=== PATIENT | female | born 1955 | race Caucasian/White ===

== ENCOUNTER → 2021-04-28 11:02 | Outpatient (BNVA) | payer OTHER, SELFPAY | PROVIDERS: Visit Provider Nurse Practitioner Family | DX: Z11.52 Encounter for screening for COVID-19 (principal) | CPT/HCPCS: 87635 ==

== ENCOUNTER → 2022-03-18 09:17 | Outpatient (BNVA) | payer MEDICARE, OTHER, SELFPAY | PROVIDERS: PCP Nurse Practitioner Family; Visit Provider Nurse Practitioner Family | DX: J40 Bronchitis, not specified as acute or chronic (principal) | CPT/HCPCS: 71046; 80053; 80061; 82306; 83036; 84443 ==

== ENCOUNTER 2022-05-04 13:28 | Outpatient (CLI) | payer MEDICARE, OTHER, SELFPAY ==
--- NOTE | 2022-05-04 13:44 | XR_ITS ---
WS: [id number] DEXA (DUAL ENERGY X-RAY ABSORPTIOMETRY) Bone mineral density was performed using a [employer] machine. HISTORY: ASYMPTOMATIC MENOPAUSAL STATE COMPARISON: None available. Lumbar spine BMD (L1-L4): 0.990 g/cm2 T score: -1.6 Z score: -1.1 Total hip BMD: Left: 1.071 g/cm2. T score: 0.5 Z score: 0.9 Right: 1.070 g/cm2. T score: 0.5 Z score: 0.9 10 year probability of a major osteoporotic fracture is 7.7%. XR/XR DEXA axial skeleton* [id number] IMPRESSION: OSTEOPENIA based upon the WHO classification for females.
--- NOTE | 2022-05-04 13:47 | MM_ITS ---
WS: [email or web address] BILATERAL 3D TOMOSYNTHESIS DIGITAL SCREENING MAMMOGRAPHY WITH CAD CLINICAL INFORMATION: SCREENING HISTORY: Screening mammogram. No current complaints. COMPARISON: 2018 TECHNIQUE: Bilateral CC and MLO views. FINDINGS: Scattered fibroglandular densities bilaterally. No suspicious focal mass, asymmetry, calcifications, or architectural distortion. No evidence of malignancy. Punctate and lucent centered calcifications. MM/[place] [id number] IMPRESSION: BI-RADS: 2-Benign FOLLOW UP: 1 Year Follow-up Recommend return to annual screening mammography.
== END 2022-05-04 13:29 | disposition home or self-care (01) ==
LOC: RAD 13:29
PROVIDERS: PCP Nurse Practitioner Family; Visit Provider Nurse Practitioner Family
DX: Z12.31 Encounter for screening mammogram for malignant neoplasm of breast (principal); Z78.0 Asymptomatic menopausal state; M85.80 Other specified disorders of bone density and structure, unspecified site
CPT/HCPCS: 77063; 77067; 77080

== ENCOUNTER 2024-04-17 10:56 | Emergency (ER) | payer MEDICARE, OTHER, SELFPAY ==
[2024-04-17 10:58] VITALS: BP 203/85; PULSE 80; RESP 16; TEMP 36.4; O2SAT 96; BMI 39.1
--- NOTE | 2024-04-17 11:16 | CT_ITS ---
WS: [id number] CT HEAD NONCONTRAST HISTORY: Symptoms of acute stroke TECHNIQUE: Contiguous axial imaging performed through the brain. Bone and soft tissue windows. Sagitt al and coronal reformats reviewed. All CT scans at [facility] use at least one of these dose optimization techniques: automated exposure control; mA and/or kV adjustment per patient size (includ es targeted exams where dose is matched to clinical indication); or iterative reconstruction. DLP: 1153.88 mGy COMPARISON: None available. No acute intracranial hemorrhage, midline shift or mass effect. Moderate atrophy. Prior lacunar infarct LEFT thalamus. Ventricles: Normal size with no hydrocephalus. No inferior displacement of the cerebellar tonsils. Paranasal sinuses: As visualized are clear. Mastoid air cells: Well pneumatized. Calvarium and scalp: Skull is intact with no soft tissue edema or swelling. CT/CT head thrombolytic [id number] IMPRESSION: 1. No acute intracranial hemorrhage or edema. 2. Mild atrophy and small vessel disease. 3. Remote LEFT thalamic lacunar infarct.
--- NOTE | 2024-04-17 11:28 | ECG_ITS ---
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 Measurements Intervals [place] Rate: 72 P: -6 TN: 158 QRS: 15 QRSD: 103 T: 35 QT: 375 QTc: 413 Interpretive Statements SINUS RHYTHM LOW QRS VOLTAGE IN PRECORDIAL LEADS [QRS DEFLECTION < 1.0 mV IN CHEST LEADS] POSSIBLE INFERIOR MYOCARDIAL INFARCTION , PROBABLY OLD [30 ms Q WAVE IN II/aVF] No previous ECG available for comparison Electronically Signed On 04-20-2024 21:46:32 [employer] by Wale Romano M.D. [email or web address]
[2024-04-17 11:44] LABS: Basophils # 0.1 10^3/uL (0.0-0.1); Basophils % 1.4 %; Eosinophils # 0.2 10^3/uL (0.0-0.8); Eosinophils % 3.3 %; Hematocrit 45.9 % (36-47); Lymphocytes # 2.4 10^3/uL (0.8-4.8); Lymphocytes % 37.5 %; Mean Corpuscular HGB Conc 31.6 g/dL (30-55); Mean Corpuscular Volume 88.8 fl (85-98); Mean Platelet Volume 11.1 fL (7.4-10.4); Monocytes # 0.5 10^3/uL (0.2-0.9); Monocytes % 7.3 %; Neutrophils # 3.23 10^3/uL (1.8-7.7); Neutrophils % 50.2 %; Nucleated Red Blood Cells % 0 %; Platelet Count 262 10^3/cmm (157-399); Red Blood Count 5.17 10^6/uL (3.85-5.65); Red Cell Distribution Width 12.7 % (12.1-15.1); White Blood Count 6.43 10^3/uL (3.29-11.43)
[2024-04-17 12:00] LABS: Partial Thromboplastin Time 31.6 SECONDS (23.9-36.7)
[2024-04-17 12:05] LABS: Alanine Aminotransferase 23 U/L (0-33); Alkaline Phosphatase 87 U/L (35-105); Anion Gap 16.2 (5-19); Aspartate Amino Transferase 23 U/L (0-32); Blood Urea Nitrogen 15 mg/dL (8-23); Calcium 8.7 mg/dL (8.5-10.5); Carbon Dioxide 23 mmol/L (22-29); Chloride 103 mmol/L (98-107); Creatinine Clr Calc Pharmacy 78.8243; Globulin 3.6 g/dL (1.3-4.6); Glomerular Filtration Rate 83.2 mL/min (90-130); Glucose 209 mg/dL (65-115); Osmolality Calculated 293 mOsm/kg (285-295); Potassium 4.2 mmol/L (3.5-5.1); Sodium 138 mmol/L (136-145); Total Bilirubin 0.4 mg/dL (0.15-1.2); Total Protein 7.6 g/dL (6.6-8.7)
--- NOTE | 2024-04-17 12:15 | ED_ITS ---
HPI - Neuro Symptoms/Deficit 2 General: Chief Complaint: Neuro Symptoms/Deficit Stated Complaint: stroke symptoms sent from clinic Time Seen by Provider: 04/17/24 11:15 History of Present Illness: 68-year-old female who presents emergenc y room with complaint of strokelike symptoms. Her last known well was at least 48 hours ago. She reports of numbness in her right hand and the right side of her face difficulty ambulating and stumbling at times. She is reporting difficulty with restless legs and significantly problems some at night. Associated symptoms: Deny chest pain Related Data Previous Rx's Medication Instructions Recorded aspirin 81 mg tablet,delayed 81 mg PO DAILY #30 tabs 04/17/24 release atorvastatin 40 mg tablet 40 mg PO DAILY #30 tabs 04/17/24 clopidogrel 75 mg tablet (Plavix) 75 mg PO DAILY #30 tabs 04/17/24 Allergies Allergy/AdvReac Type Severity Reaction Status Date / Time No Known Allergies Allergy Verified 04/28/21 10:58 Review of Systems 2 Const: Denies: fever(s) or chills Card: Denies: chest pain Resp: Denies: dyspnea GI: Denies: abdominal pain : Denies: dysuria, urinary frequency or urinary urgency Musc: Denies: neck pain or back pain Skin/Breast: Denies: rash Neuro: Reports: weakness in extremities and difficulty walking PFSH ED 2 PFSH: Medical History (Updated 04/17/24 @ 16:10 by Bhanu Santamaria DO) Osteopenia Elevated BP without diagnosis of hypertension Social History Smoking and tobacco/nicotine status: former use of tobacco/nicotine NIH stroke score 2 NIHSS: Level Of Consciousness - 1a: 0 Level Of Consciousness Questions - 1b: Both Correct Level Of Consciousness Commands - 1c: Both Correct Best Gaze - 2: Normal Visual Edmond - 3: No Visual Loss Facial Palsy - 4: Minor Paralysis Motor Arm Right - 5: No Drift Motor Arm Left - 5: No Drift M otor Leg Right - 6: No Drift Motor Leg Left - 6: No Drift Limb Ataxia - 7: Absent Sensory - 8: Mild To Moderate Loss Best Language - 9: No Aphasia Dysarthia - 10: Normal Extinction And Inattention - 11: 0 Score: Total Score: 2 Physical Exam 2 Const: GENERAL APPEARANCE: cooperative ORIENTATION/CONSCIOUSNESS: Yes awake, Yes oriented to person, Yes oriented to place and Yes oriented to time HENMT: COMMON NORMALS: normocephalic, atraumatic and hearing grossly normal bilaterally HEAD & SCALP: normocephalic and atraumatic Resp: COMMON NORMALS: normal respiratory effort, No retractions, No use of accessory muscles and clear to auscultation bilaterally AUSCULTATION: clear to auscultation bilaterally Cardio: COMMON NORMALS: regular rate, regular rhythm and No murmurs present (Cardio) RATE: regular rate RHYTHM: regular rhythm GI: COMMON NORMALS: Soft to palpation and No hepatosplenomegaly present A USCULTATION: Yes normoactive bowel sounds PALPATION: Yes Soft to palpation, No Tenderness to palpation present (GI), No Guarding due to palpation present (GI) and Yes No hepatosplenomegaly present Extremity: COMMON NORMALS: normal to inspection, capillary refill normal, no clubbing, cyanosis or edema, no calf tenderness and no pedal edema Neuro: SENSORIUM/ORIENTATION: Yes oriented to person, Yes oriented to place and Yes oriented to time Skin: COMMON NORMALS: no rashes or lesions noted GENERAL SKIN EXAM: no rashes or lesions noted Course 2 Vital Signs: Vital signs: Vital Signs Temperature 97.5 F L 04/17/24 10:58 Pulse Rate 72 04/17/24 16:42 Respiratory Rate 16 04/17/24 16:42 Blood Pressure 180/90 04/17/24 16:42 Pulse Oximetry 97 04/17/24 16:42 Oxygen Delivery Me thod Room Air 04/17/24 13:13 MDM - Neuro Symptoms/Deficit Medical Decision Making The patient is 48 hours from onset of symptoms she still has numbness and tingling on her right side but otherwise is negative she does not wish to be admitted she is actually up and active wanting to leave. Her blood pressure is still slightly elevated. She not currently taking any medications. She is outside the window for any interventions due to timeframe. Will discharge her home on dual antiplatelet therapy and statin set her up for outpatient testing and follow-up with neurology. We discussed the option of observation she prefers not to do this. Lab Data 04/17/24 11:38 04/17/24 11:[address] 04/17/24 11:16 IMPRESSION: 1. No acute intracranial hemorrhage or edema. 2. Mild atrophy and small vessel disease. 3. Remote LEFT thalamic lacunar infarct. Laboratory Results WBC 6.43 10^3/uL (3.29-11.43) 04/17/24 11:38 RBC 5.17 10^6/uL (3.85-5.65) 04/17/24 11:38 Hgb 14.50 g/dL (11.27-16.99) 04/17/24 11:38 Hct 45.9 % (36-47) 04/17/24 11:38 MCV 88.8 fl (85-98) 04/17/24 11:38 MCH 28.0 pg (27-33) 04/17/24 11:38 MCHC 31.6 g/dL (30-55) 04/17/24 11:38 RDW 12.7 % (12.1-15.1) 04/17/24 11:38 Plt Count 262 10^3/cmm (157-399) 04/17/24 11:38 MPV 11.1 fL (7.4-10.4) H 04/17/24 11:38 Neut % (Auto) 50.2 % 04/17/24 11:38 Lymph % (Auto) 37.5 % 04/17/24 11:38 Lamar % (Auto) 7.3 % 04/17/24 11:38 Eos % (Auto) 3.3 % 04/17/24 11:38 Baso % (Auto) 1.4 % 04/17/24 11:38 Neut # (Auto) 3.23 10^3/uL (1.8-7.7) 04/17/24 11:38 Lymph # (Auto) 2.4 10^3/uL (0.8-4.8) 04/17/24 11:38 Lamar # (Auto) 0.5 10^3/uL (0.2-0.9) 04/17/24 11:38 Eos # (Auto) 0.2 10^3/uL (0.0-0.8) 04/17/24 11:38 Baso # (Auto) 0.1 10^3/uL (0.0-0.1) 04/17/24 11:38 Nucleated RBC % (auto) 0 % 04/17/24 11:38 Nucleated RBCs # 0.0 /100WBC 04/17/24 11:38 PT 13.50 SECONDS (12.1-14.9) 04/17/24 11:38 INR 1.00 (0.8-1.2) 04/17/24 11:38 APTT 31.6 SECONDS (23.9-36.7) 04/17/24 11:38 Sodium 138 mmol/L (136-145) 04/17/24 11:38 Potassium 4.2 mmol/L (3.5-5.1) 04/17/24 11:38 Chloride 103 mmol/L (98-107) 04/17/24 11:38 Carbon Dioxide 23 mmol/L (22-29) 04/17/24 11:38 Anion Gap 16.2 (5-19) 04/17/24 11:38 BUN 15 mg/dL (8-23) 04/17/24 11:38 Creatinine 0.7 mg/dL (0.5-0.9) 04/17/24 11:38 GFR Calculation 83.2 mL/min (90-130) L 04/17/24 11:38 Glucose 209 mg/dL (65-115) H 04/17/24 11:38 Calculated Osmolality 293 mOsm/kg (285-295) 04/17/24 11:38 Calcium 8.7 mg/dL (8.5-10.5) 04/17/24 11:38 Total Bilirubin 0.4 mg/dL (0.15-1.2) 04/17/24 11:38 AST 23 U/L (0-32) 04/17/24 11:38 ALT 23 U/L (0-33) 04/17/24 11:38 Alkaline Phosphatase 87 U/L (35-105) 04/17/24 11:38 Total Protein 7.6 g/dL (6.6-8.7) 04/17/24 11:38 Albumin 4.0 g/dL (3.5-5.2) 04/17/24 11:38 Globulin 3.6 g/dL (1.3-4.6) 04/17/24 11:38 Urine Color Yellow (Yellow) 04/17/24 14:00 Urine Appearance Clear (CLEAR) 04/17/24 14:00 Urine pH 5.5 (5-7) 04/17/24 14:00 Ur Specific [place] 1.011 (1.005-1.030) 04/17/24 14:00 Urine Protein Negative (Negative) 04/17/24 14:00 Urine Glucose (UA) Negative (Normal) 04/17/24 14:00 Urine Ketones Negative (Negative) 04/17/24 14:00 Urine Blood Non-haemolysed trace (Negative) 04/17/24 14:00 Urine Nitrate Negative (Negative) 04/17/24 14:00 Urine Bilirubin Negative (Negative) 04/17/24 14:00 Urine Urobilinogen 0.2 mg/dL (Negative) 04/17/24 14:00 Ur Leukocyte Esterase 1+ (Negative) A 04/17/24 14:00 Urine RBC 0-2 /hpf (0-2) 04/17/24 14:00 Urine WBC 6-10 /hpf (0-5) 04/17/24 14:00 Ur Squamous Epith Cells 0-5 /hpf (0-5) 04/17/24 14:00 Amorphous Sediment Not Reportable 04/17/24 14:00 Urine Bacteria None seen /hpf (NONE) 04/17/24 14:00 Hyaline Casts 0-4 /lpf H 04/17/24 14:00 All radiology interpretation(s) finalized by discharge Discharge Plan Discharge Patient Disposition: Home Clinical Impression: Cerebrovascular accident Condition: Stable Prescriptions: New aspirin 81 mg tablet,delayed release (DR/EC) 81 mg PO DAILY Qty: 30 0RF clopidogrel [Plavix] 75 mg tablet 75 mg PO DAILY Qty: 30 0RF atorvastatin 40 mg tablet 40 mg PO DAILY Qty: 30 0RF Discharge Orders: Discharge ED (Routine); Ordered 04/17/24 Ordered By: Bhanu Santamaria Referrals: Daxa Soni NP [Primary Care Provider] - Discharge Diet: Usual diet Discharge Activity: Increase activity as tolerated Patient Instructions: Self Care Measures After a Stroke (ED), Stroke (DC), Opioid Safety, Pain Management Activity Restrictions/Additional Instructions: Thank you for choosing [facility] for your healthcare needs today. It is very important that you follow up as instructed or that you return to the Emergency Department should you have concerns or if your condition changes or worsens in any way. You were seen in the emergency room for numbness and tingling on your right side. Based on your exam suspect you had a stroke however since her symptoms began 48 hours prior there is no significant intervention. CT of your head did not show any bleeding but did show a remote infarct. After discussion we have decided to treat treat you as an outpatient. Recommend that you start aspirin daily Plavix 75 mg daily and atorvastatin 40 mg daily. 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
[2024-04-17 12:30] VITALS: BP 129/102; PULSE 68; RESP 18; O2SAT 94
[2024-04-17 13:13] VITALS: BP 212/103; PULSE 70; RESP 18; O2SAT 100
[2024-04-17 13:21] VITALS: BP 180/90
[2024-04-17 14:12] LABS: Bilirubin Urine Negative (Negative); Blood Urine Non-haemolysed trace (Negative); Glucose Urine UA Negative (Normal); Ketones Urine Negative (Negative); Leukocyte Esterase Urine 1+ (Negative); Nitrate Urine Negative (Negative); Protein Urine Negative (Negative); Specific Gravity, Urine 1.011 (1.005-1.030); Urine Appearance Clear (CLEAR); Urine Color Yellow (Yellow); Urobilinogen Urine 0.2 mg/dL (Negative); pH Urine 5.5 (5-7)
[2024-04-17 14:17] LABS: Add Urine Microscopic? YES; Bacteria Urine None Seen /hpf; Hyaline Casts Urine 0-4 /lpf; RBC Urine 0-2 /hpf (0-2); Squamous Epithelial Cell Urine 0-5 /hpf (0-5)
[2024-04-17 16:42] VITALS: BP 180/90; PULSE 72; RESP 16; O2SAT 97
[2024-04-19 11:03] LABS: Glucose Point of Care 221 mg/dL (70-110)
--- NOTE | 2024-04-24 09:41 | DCPLANNER ---
faxed outpatient echo, carotid and head mri to scheduling. messaged neuro for holter
== END 2024-04-17 16:37 | disposition home or self-care (01) ==
PROVIDERS: Emergency Provider Family Medicine; PCP Nurse Practitioner Family
DX: I63.9 Cerebral infarction, unspecified (principal); Z79.82 Long term (current) use of aspirin; Z79.02 Long term (current) use of antithrombotics/antiplatelets; Z87.891 Personal history of nicotine dependence
CPT/HCPCS: 36415; 36416; 70450; 80053; 81001; 82962; 85025; 85610; 85730; 93005; 99284

== ENCOUNTER 2024-04-24 14:24 | Outpatient (CLI) | payer MEDICARE, OTHER, SELFPAY ==
--- NOTE | 2024-04-24 14:30 | MR_ITS ---
WS: [id number] MRI BRAIN WITH AND WITHOUT CONTRAST HISTORY: CEREBRAL INFARCTION COMPARISON: CT head 04/17/2024 TECHNIQUE: Multiplanar imaging performed through the brain with MultiHance 20 ml's IV. Very subtle area of diffusion abnormality in the LEFT thalamus. This corresponds to the low-attenuati on area in the LEFT thalamus seen by recent CT. Very minimal small vessel ischemic disease. No large territory infarct. No signal abnormalities or hemorrhage. No susceptibility artifacts or prior lacunar infarcts. Ventricles and extra-axial spaces are normal. Clivus and pituitary gland are normal. Visualized posterior fossa and brainstem are also normal. On the postcontrast imaging peripherally enhancing focus in the LEFT thalamus measures 5.2 mm. This c orresponds to the signal abnormality seen on prior CT and also the subtle diffusion abnormality. This may be a subacute infarct but will need short-term follow-up. No additional areas of abnormal enhanc ement. Dural venous sinuses are normal. Paranasal sinuses: Well aerated with no significant disease. Mastoid air cells: Normal. Calvarium and scalp: Normal. MR/MR head wo/w con [id number] IMPRESSION: 1. Subtle diffusion abnormality in the LEFT thalamus. Peripherally enhancing m ass in the LEFT thalamus measures 5.2 mm. These findings correspond to the subt le area of decreased attenuation noted on recent noncontrast head CT thought to be a chronic infarct. Differential includes subacute infarct or metastatic les ion. Recommend short-term repeat MRI brain imaging with and without IV contrast to confirm resolving infarct. MRI brain recommended in 4 to 6 weeks. 2. No additional infarcts or enhancing lesions.
[2024-04-24] MEDS: gadobenate dimeglumine 20 mL vial IV (15:15)
== END 2024-04-24 14:25 | disposition home or self-care (01) ==
LOC: RAD 14:26
PROVIDERS: PCP Nurse Practitioner Family; Visit Provider Family Medicine
DX: I63.9 Cerebral infarction, unspecified (principal)
CPT/HCPCS: 70553

== ENCOUNTER 2024-05-02 07:00 | Outpatient (CLI) | payer MEDICARE, OTHER, SELFPAY ==
--- NOTE | 2024-05-02 07:13 | USCV_ITS ---
Samantha Perez Age: 68 Gender: F : 1955 Exam Date: 05/02/2024 07:27 Ordering Phys: Bhanu Santamaria DO Technologist: Exam Location: [facility] – [place] Indication: cp BP: 139 / 80 HR: 70 Rhythm: Sinus Technical Quality: Adequate MEASUREMENTS (Male / Female) Normal Values 2D ECHO LV Diastolic Diameter PLAX 3.9 cm 4.2 - 5.9 / 3.9 - 5.3 cm IVS Diastolic Thickness 1.4 cm 0.6 - 1.0 / 0.6 - 0.9 cm IVS Systolic Thickness 1.6 cm LVPW Diastolic Thickness 1.4 cm 0.6 - 1.0 / 0.6 - 0.9 cm LVPW Systolic Thickness 2.0 cm LVOT Diameter 2.0 cm LV Ejection Fraction 2D Teich 63.6 % LV Ejection Fraction MOD 4C 72.0 % LV Ejection Fraction MOD 2C 63.5 % LV Ejection Fraction 2C AL 62.9 % LA Diameter 3.1 cm RA Systolic Volume 4C AL 36.9 ml RA Systolic Volume 4C MOD 35.2 ml Aorta at Sinotubular Diameter 2.9 cm IVC Diameter 1.6 cm M-MODE LA Ao Ratio MM 0.9 AV Cusp Separation MM 2.1 cm DOPPLER AV Peak Velocity 160.0 cm/s LVOT Peak Velocity 102.0 cm/s AV Area Cont Eq vti 2.3 cm squared AV Area Cont Eq pk 2.1 cm squared MV Peak Velocity 117.0 cm/s MV Area PHT 4.5 cm squared Mitral E to A Ratio 0.9 TR Peak Velocity 140.0 cm/s TR Peak Gradient 7.8 mmHg TV Peak E Velocity 85.0 cm/s PV Peak Velocity 95.0 cm/s FINDINGS Left Ventricle Normal left ventricular size and systolic function, EF 63%.no regional wall motion abnormalities. Mild left ventricular hypertrophy. Grade I/IV diastolic dysfunction (abnormal relaxation filling pattern), normal to mildly elevated filling pressures. Right Ventricle The right ventricle is normal in size and function. Right Atrium The right atrium is normal in size. Left Atrium The left atrium is normal in size. Mitral Valve Trace mitral valve regurgitation. Aortic Valve Trace aortic valve regurgitation. Thickened aortic valve. Tricuspid Valve Trace tricuspid valve regurgitation. Pulmonic Valve Pulmonic valve not well visualized. Pericardium Normal pericardium without effusion. Aorta Normal ascending aorta dimension. IVC The inferior vena cava appears normal. CONCLUSIONS Normal left ventricular size and systolic function, EF 63%.no regional wall motion abnormalities. Mild left ventricular hypertrophy. Grade I/IV diastolic dysfunction (abnormal relaxation filling pattern), normal to mildly elevated filling pressures. Trace mitral valve regurgitation. Thickened aortic valve. Trace aortic valve regurgitation. Trace tricuspid valve regurgitation. There is no pericardial effusion. There are no intracardiac masses. No similar previous studies are available for comparison Dr Wale Romano MD [facility] (Electronically Signed) Final Date: 02 May 2024 17:08 S
== END 2024-05-02 07:01 | disposition home or self-care (01) ==
PROVIDERS: PCP Nurse Practitioner Family; Visit Provider Family Medicine
DX: I50.30 Unspecified diastolic (congestive) heart failure (principal); I63.9 Cerebral infarction, unspecified
CPT/HCPCS: 93306

== ENCOUNTER → 2024-05-16 12:17 | Outpatient (BNVA) | payer MEDICARE, OTHER, SELFPAY | PROVIDERS: PCP Nurse Practitioner Family; Visit Provider Nurse Practitioner Family | DX: Z13.1 Encounter for screening for diabetes mellitus (principal); E11.9 Type 2 diabetes mellitus without complications; E78.2 Mixed hyperlipidemia | CPT/HCPCS: 80053; 80061; 82607; 83036; 84443; 85025 ==

== ENCOUNTER → 2024-05-30 07:27 | Outpatient (BNVA) | payer MEDICARE, OTHER, SELFPAY | PROVIDERS: PCP Nurse Practitioner Family; Referring Provider Nurse Practitioner Family; Visit Provider Specialist | DX: I63.81 Other cerebral infarction due to occlusion or stenosis of small artery; E11.9 Type 2 diabetes mellitus without complications; I10 Essential (primary) hypertension | CPT/HCPCS: 99204; 99205 ==

== ENCOUNTER 2024-06-05 10:35 | Outpatient (CLI) | payer MEDICARE, OTHER, SELFPAY ==
--- NOTE | 2024-06-05 11:00 | MR_ITS ---
WS: [id number] MRI BRAIN WITH AND WITHOUT CONTRAST HISTORY: I63.9 - Cerebral infarction, unspecified COMPARISON: 04/24/2024, CT head 04/17/2024 TECHNIQUE: Multiplanar imaging performed through the brain with MultiHance 20 ml's IV. No acute infarcts are seen. Griffith-white matter differentiation is well preserved. There are several sc attered T2 and FLAIR signal hyperintensities predominantly in the frontal and deep white matter which do not enhance. No large territory infarct. No susceptibility artifacts or prior lacunar infarcts. Ventricles and extra-axial spaces are normal. Clivus and pituitary gland are normal. Visualized posterior fossa and brainstem are also normal. Very subtle area of increased signal on the T1 sequence in the LEFT thalamus. This corresponds to the previously described possible lacunar infarct. There is persistent enhancement in the LEFT thalamus corresponding to this area of increased T1 signal. With this additional follow-up imaging this is mos t likely a small venous angioma and not a prior infarct. There are no enhancing masses. No enhancing mass. Normal flow voids. Dural venous sinuses are normal. Paranasal sinuses: Well aerated with no significant disease. Mastoid air cells: Normal. Calvarium and scalp: Normal. MR/MR head wo/w con [id number] IMPRESSION: 1. No acute infarct or hemorrhage. 2. Previously described enhancement within the LEFT thalamus is reidentified. There is still mild enhancement in the thalamus. With the continued enhancement and the increased signal on the T1 sequence favor this is probably an incident al venous angioma. No mass identified. 3. No prior infarcts.
== END 2024-06-05 10:36 | disposition home or self-care (01) ==
LOC: RAD 10:36
PROVIDERS: PCP Nurse Practitioner Family; Visit Provider Specialist
DX: I63.9 Cerebral infarction, unspecified (principal); R93.0 Abnormal findings on diagnostic imaging of skull and head, not elsewhere classified
CPT/HCPCS: 70553; A9577

== ENCOUNTER 2024-06-13 13:57 | Outpatient (CLI) | payer MEDICARE, OTHER, SELFPAY | END 2024-06-13 13:58 | disposition home or self-care (01) | LOC: SLEEP 13:58 | PROVIDERS: PCP Nurse Practitioner Family; Visit Provider Nurse Practitioner Family | DX: G47.33 Obstructive sleep apnea (adult) (pediatric) (principal) | CPT/HCPCS: G0399 ==

== ENCOUNTER → 2024-08-23 09:12 | Outpatient (BNVA) | payer MEDICARE, OTHER, SELFPAY | PROVIDERS: PCP Nurse Practitioner Family; Visit Provider Nurse Practitioner Family | DX: E11.9 Type 2 diabetes mellitus without complications (principal); E78.2 Mixed hyperlipidemia | CPT/HCPCS: 80053; 80061; 82962; 83036 ==

== ENCOUNTER 2024-08-24 09:25 | Outpatient (CLI) | payer MEDICARE, OTHER, SELFPAY ==
--- NOTE | 2024-08-24 09:20 | MM_ITS ---
WS: [email or web address] SCREENING DIGITAL BREAST TOMOSYNTHESIS MAMMOGRAM WITH CAD HISTORY: Z12.39 - Encounter for other screening for malignant neop... COMPARISON: 05/04/2022 Bilateral CC and MLO with tomosynthesis and synthetic mammography submitted. Computer aided detection analyzed. Breast composition: There are scattered areas of fibroglandular density. Scattered benign calcifications. No suspicious mass or nodule developed. No architectural distortion. MM/MM scr BI tomosynthesis [id number] IMPRESSION: BI-RADS: 2 - Benign. FOLLOW UP: 1 Year Follow-up
== END 2024-08-24 09:26 | disposition home or self-care (01) ==
LOC: RAD 09:26
PROVIDERS: PCP Nurse Practitioner Family; Visit Provider Nurse Practitioner Family
DX: Z12.31 Encounter for screening mammogram for malignant neoplasm of breast (principal); R92.323 Mammographic fibroglandular density, bilateral breasts; R92.1 Mammographic calcification found on diagnostic imaging of breast
CPT/HCPCS: 77063; 77067

== ENCOUNTER → 2025-04-05 11:32 | Outpatient (BNVA) | payer MEDICARE, OTHER, SELFPAY | PROVIDERS: PCP Nurse Practitioner Family; Visit Provider Nurse Practitioner Family | DX: E11.9 Type 2 diabetes mellitus without complications (principal); E78.2 Mixed hyperlipidemia | CPT/HCPCS: 80053; 80061; 83036; 84443; 85025 ==

== ENCOUNTER 2025-04-13 13:51 | Outpatient (CLI) | payer MEDICARE, OTHER, SELFPAY ==
--- NOTE | 2025-04-13 15:00 | XR_ITS ---
WS: [email or web address] DEXA (DUAL ENERGY X-RAY ABSORPTIOMETRY) Bone mineral density was performed using a [employer] machine. HISTORY: Z78.0 - Asymptomatic menopausal state COMPARISON: 05/04/2022 Lumbar spine BMD (L1-L4): 1.015 g/cm2 T score: -1.4 Z score: -0.5 Total hip BMD: Left: 1.046 g/cm2. T score: 0.3 Z score: 1.2 Right: 1.018 g/cm2. T score: 0.1 Z score: 1.0 10 year probability of a major osteoporotic fracture is 8.6%. Compared to the prior study from 05/04/2022. Lumbar spine bone mineral density has increased by 2.5%. Bilateral hips bone mineral density has decreased by 3.6%. XR/XR DEXA axial skeleton* [id number] IMPRESSION: OSTEOPENIA based upon the WHO classification for females. Significant increase in bone mineral density within the lumbar spine since the prior study. Significant decrease in bone mineral density within the hips since the prior st [facility].
== END 2025-04-13 13:52 | disposition home or self-care (01) ==
LOC: RAD 13:52
PROVIDERS: PCP Nurse Practitioner Family; Visit Provider Nurse Practitioner Family
DX: Z13.820 Encounter for screening for osteoporosis (principal); Z78.0 Asymptomatic menopausal state; M85.89 Other specified disorders of bone density and structure, multiple sites
CPT/HCPCS: 77080